=== PATIENT | male | born 1950 | race Caucasian/White ===

== ENCOUNTER → 2018-12-10 | Outpatient (CLI) | payer OTHER ==
[~2018-12-10] MED LIST: DIPATR PO; LISI20 PO; MECL25 PO
== END | disposition home or self-care (01) ==
LOC: LAB SHORT 12:20 → LAB EV 12:20
DX: N41.9 Inflammatory disease of prostate, unspecified (principal)
CPT/HCPCS: 87086

== ENCOUNTER 2019-07-27 06:38 | Day surgery (SDC) | payer OTHER ==
[~2019-07-27] VITALS: Ht 170.2 cm; Wt 77.7 kg
== END 2019-07-27 09:26 | disposition home or self-care (01) ==
LOC: ORSCSDS 06:38
PROVIDERS: Student in an Organized Health Care Education/Training Program
PROC: 0DBL8ZX Excision of Transverse Colon, Via Natural or Artificial Opening Endoscopic, Diagnostic (ICD-10-PCS; principal; 2019-07-27 08:00)
PROC: 0DBH8ZX Excision of Cecum, Via Natural or Artificial Opening Endoscopic, Diagnostic (ICD-10-PCS; principal; 2019-07-27 08:00)
DX: Z12.11 Encounter for screening for malignant neoplasm of colon (principal); D12.3 Benign neoplasm of transverse colon; K64.4 Residual hemorrhoidal skin tags; K64.8 Other hemorrhoids; K57.30 Diverticulosis of large intestine without perforation or abscess without bleeding; I10 Essential (primary) hypertension; E03.9 Hypothyroidism, unspecified; E78.00 Pure hypercholesterolemia, unspecified; J45.909 Unspecified asthma, uncomplicated; Z79.899 Other long term (current) drug therapy
CPT/HCPCS: 88305; J0330; J0461; J2405; J2704; J7040; J7120

== ENCOUNTER → 2019-10-19 | Outpatient (CLI) | payer OTHER | LOC: LAB 16:56 → LAB SHORT 16:56 | DX: Z08 Encounter for follow-up examination after completed treatment for malignant neoplasm (principal); S20.401A Unspecified superficial injuries of right back wall of thorax, initial encounter; S40.911A Unspecified superficial injury of right shoulder, initial encounter; D22.5 Melanocytic nevi of trunk; D22.62 Melanocytic nevi of left upper limb, including shoulder; D48.5 Neoplasm of uncertain behavior of skin; D17.22 Benign lipomatous neoplasm of skin and subcutaneous tissue of left arm; D18.01 Hemangioma of skin and subcutaneous tissue; D22.61 Melanocytic nevi of right upper limb, including shoulder; L60.9 Nail disorder, unspecified; L91.8 Other hypertrophic disorders of the skin; L53.8 Other specified erythematous conditions; L90.5 Scar conditions and fibrosis of skin; L70.8 Other acne; L82.1 Other seborrheic keratosis; L81.4 Other melanin hyperpigmentation; R21 Rash and other nonspecific skin eruption; Z85.828 Personal history of other malignant neoplasm of skin | CPT/HCPCS: 87798 ==